=== PATIENT | male | born 1980 | race Caucasian/White ===

== ENCOUNTER 2019-06-02 09:40 | Emergency (ER) | payer SELFPAY ==
[2019-06-02] MEDS ORDERED: ATENOLOL50 MG PO (10:27)
[2019-06-02 10:48] LABS: ALBUMIN 4.9 g/dL (3.2-5.0); ALKALINE PHOSPHATASE 93 u/l (38-126); ANION GAP 20 (6-22 (CALC)); BILIRUBIN, TOTAL 1.8 mg/dL (0.0-1.4); BUN 12 mg/dL (9-20); BUN/CREATININE RATIO 16 (12-20 (CALC)); CARBON DIOXIDE 23 mmol/l (22-30); CHLORIDE 98 mmol/l (95-108); CREATININE 0.7 mg/dL (0.7-1.3); ETHYL ALCOHOL 0 mg/dl (0-30); GFR > 60 ML/MIN (>=60 (CALC)); GFR FOR AFR.AMER. > 60 ML/MIN (>=60 (CALC)); POTASSIUM 4.3 mmol/l (3.5-5.1); SGOT/AST 110 u/l (17-59); SODIUM 136 mmol/l (137-146); TOTAL PROTEIN 8.1 g/dL (6.3-8.2)
[2019-06-02 10:55] LABS: HEMATOCRIT 49.3 % (39.0-50.0); HEMOGLOBIN 16.2 g/dl (14.0-18.0); MEAN CELL VOLUME 90.3 fL CALC (80.0-100.0); MEAN CORPUSCULAR HGB 29.7 pG CALC (26.0-32.0); MEAN CORPUSCULAR HGB CONC 32.9 g/L CALC (32.0-36.0); RED BLOOD COUNT 5.45 mill/uL (4.70-6.10)
[2019-06-02 10:56] LABS: PLATELET COUNT 187 thou/uL (130-400)
[2019-06-02 10:57] LABS: NEUT% 75 % (42-76)
[2019-06-02 10:58] LABS: LYMPH% 16 % (15-41)
[2019-06-02 10:59] LABS: EOS% 2 % (0-8); MONO% 7 % (2-13)
[2019-06-02 11:05] LABS: RED CELL DISTRI WIDTH 13.7 % (11.5-15.5)
[2019-06-02 11:33] LABS: BARBITURATES NEGATIVE (NEGATIVE); COCAINE NEGATIVE (NEGATIVE); METHADONE NEGATIVE (NEGATIVE); OXCYCODONE NEGATIVE (NEGATIVE); TETRAHYDROCANNABIONOL NEGATIVE (NEGATIVE); TRICYLIC ANTIDEPRESSANTS NEGATIVE (NEGATIVE)
[2019-06-02 11:34] LABS: URINE BILIRUBIN - DIPSTICK NEGATIVE (NEGATIVE); URINE BLOOD DIPSTICK NEGATIVE (NEGATIVE); URINE COLOR YELLOW; URINE GLUCOSE - DIPSTICK NEGATIVE (NEGATIVE); URINE KETONE 15 mg/dL (NEGATIVE); URINE LEUK ESTERASE NEGATIVE (NEGATIVE); URINE NITRITE - DIPSTICK NEGATIVE (Negative); URINE PH 6.5 (4.5-8.0); URINE PROTEIN - DIPSTICK NEGATIVE (NEG-TRACE); URINE SPECIFIC GRAVITY 1.015; URINE UROBILINOGEN - DIPSTICK 0.2 E.U./dL (0.2)
[2019-06-02] MEDS ORDERED: ATIVAN0.5 MG PO (11:46)
[2019-06-02] MEDS ORDERED: LIBRIUM25 M1 PO (11:46)
[2019-06-02] MEDS ORDERED: CLONIDINE0.1 MG PO (11:46)
[2019-06-02 12:02] VITALS: BP 123/67
== END 2019-06-02 12:23 | disposition home or self-care (01) | DRG 897 ==
LOC: ED 09:40
PROVIDERS: Emergency Medicine
DX: F10.231 Alcohol dependence with withdrawal delirium (principal); I10 Essential (primary) hypertension
CPT/HCPCS: J2060